=== PATIENT | female | born 1960 | race African-American/Black ===

== ENCOUNTER 2016-12-26 23:39 | Emergency (ER) | payer OTHER ==
[~2016-12-26] VITALS: Ht 170.2 cm; Wt 83.9 kg
[~2016-12-26 23:39] MED LIST: ABILIFY5 MG ORAL; ALBUTEROL SULF8.5 GM INH; AMITRIPTYLINE H25 MG ORAL; AMLODIPINE BESY10 MG ORAL; ANORO ELLIPTA1 EACH IH; ASPIR 8181 MG ORAL; ATORVASTATIN CA20 MG ORAL; CHLORTHALIDONE25 MG ORAL; GUAIFENESIN-CO118 M1 ORAL; HYDROCHLOROTHIA25 MG ORAL; LISINOPRIL20 MG ORAL; NAPROSYN500 M1 ORAL; NEURONTIN600 MG ORAL; NITROFURANTOIN100 M2 ORAL; PREDNISONE20 MG ORAL; SPIRIVA18 MCG INH; TRAMADOL HCL50 MG ORAL; VITAMIN D400 INTLU ORAL
[2016-12-26 23:55] VITALS: BP 114/89
[2016-12-27] MEDS ORDERED: traMADol 50mg tab ORAL PRN
[2016-12-27] MEDS ORDERED: Solu-MEDROL 125mg Inj IVP ONE
[2016-12-27] MEDS ORDERED: Solu-MEDROL 125mg Inj IV SCH
[2016-12-27] MEDS ORDERED: Ketorolac 30mg Inj IV PRN
[2016-12-27] MEDS ORDERED: Promethazine/Codeine 5ml UD ORAL PRN
[2016-12-27] MEDS ORDERED: DuoNeb 0.5-3(2.5)mg/3ml neb HHN PRN
[2016-12-27] MEDS ORDERED: Morphine Sulfate 2mg/ml Inj IVP PRN
[2016-12-27] MEDS ORDERED: LORazepam Inj 2mg/ml 1ml IV PRN
[2016-12-27] MEDS ORDERED: Albuterol ud Inhalation HHN ONE
[2016-12-27] MEDS ORDERED: Nitroglycerin Subl 0.4mg tab (Bottle Of 25) SL PRN
[2016-12-27] MEDS ORDERED: Ipratropium 0.02% Inh Soln 2.5ml UD HHN ONE
[2016-12-27 00:29] LABS: BASOPHILS % (AUTO) 1.6 % (0.0-2.0); EOSINOPHILS % (AUTO) 1.9 % (0.0-3.0); MEAN CORPUSCULAR HEMOGLOBIN 30.4 PG (27.0-31.0); MEAN CORPUSCULAR HGB CONC 33.6 G/DL (32.0-36.0); MEAN CORPUSCULAR VOLUME 91 FL (80-99); MEAN PLATELET VOLUME 6.4 FL (6.5-10.1); MONOCYTES % (AUTO) 3.1 % (1.0-10.0); NEUTROPHILS % (AUTO) 42.4 % (45.0-75.0); PLATELET COUNT 311 K/UL (150-450); RED BLOOD COUNT 4.49 M/UL (4.20-5.40); RED CELL DISTRIBUTION WIDTH 13.7 % (11.6-14.8)
[2016-12-27 01:14] LABS: TROPONIN I < 0.30 ng/mL (<=0.30)
[2016-12-27 01:17] LABS: ALANINE AMINOTRANSFERASE 10 U/L (3-33); ALBUMIN/GLOBULIN RATIO 1.1 (1.0-2.7); ANION GAP 17 (5-15); CALCIUM 9.4 mg/dL (8.6-10.2); CARBON DIOXIDE 24 mEQ/L (20-30); CHLORIDE 101 mEQ/L (98-107); GLOMERULAR FILTRATION RATE > 60 mL/min (>60); HEMOLYSIS 47; POTASSIUM 3.5 mEQ/L (3.4-4.9); SODIUM 142 mEQ/L (135-145); TOTAL PROTEIN 6.8 g/dL (6.6-8.7)
[2016-12-27 01:30] LABS: APPEARANCE,URINE CLEAR; KETONES,URINE NEGATIVE (NEGATIVE); LEUKOCYTE ESTERASE ,URINE 2+ (NEGATIVE); NITRITE,URINE NEGATIVE (NEGATIVE); PH,URINE 5 (4.5-8.0); PROTEIN,URINE 1+ (NEGATIVE); UROBILINOGEN,URINE NORMAL MG/DL (0.0-1.0)
[2016-12-27 01:35] LABS: ASPARTATE AMINO TRANSFERASE 18 U/L (5-40)
[2016-12-27 01:51] LABS: BACTERIA,URINE FEW /HPF; SQUAMOUS EPITHELIAL CELL,UR MODERATE /LPF (NONE/OCC)
[2016-12-27] MEDS ORDERED: ALBUTEROL SULF8.5 GM INH (02:08)
[2016-12-27] MEDS ORDERED: PREDNISONE20 MG ORAL (02:08)
[2016-12-27] MEDS ORDERED: AZITHROMYCIN250 MG ORAL (02:08)
--- NOTE | 2016-12-27 02:09 | Emergency Room Report ---
History of Present Illness General Chief Complaint: Asthma Source: Patient Present Illness HPI This is a 56-year-old female with history of asthma. She said she been having trouble with her asthma for a month now. Better during the day. Worse at night when she lay flat. She hasn't used her inhaler frequently. Also using a steroid inhaler. Also using a nebulizer machine. No steroid pills. She still able to smoke. She complaining of wheezing and short of breath tonight. More than usual. Coughing is nonproductive. Worse with exertion. Better sitting up. She's been sleeping in a recliner for last 3 days. Denies any fever or chills. Denies any chest pain. No swelling. Allergies: Coded Allergies: No Known Allergies (Unverified , 01/02/14) Patient History Past Medical History: see triage record, old chart reviewed, asthma Past Surgical History: other Pertinent Family History: none Social History: Reports: smoking Now: No Immunizations: other Reviewed Nursing Documentation: PMH: Agreed, PSxH: Agreed Nursing Documentation-PMH Hx Cardiac Problems: Yes - HIGH CHOLESTEROL Hx Hypertension: Yes Hx Asthma: Yes Hx Cancer: No Hx Gastrointestinal Problems: No Hx Neurological Problems: No Review of Systems Eye: Denies: blurred vision, eye pain ENT: Denies: ear pain, nose congestion, throat swelling Respiratory: Reports: cough, shortness of breath, wheezing Cardiovascular: Denies: chest pain, palpitations Gastrointestinal: Denies: abdominal pain, diarrhea, nausea, vomiting Musculoskeletal: Denies: back pain, joint pain Skin: Denies: rash Neurological: Denies: headache, numbness Endocrine: Denies: increased thirst, increased urine Hematologic/Lymphatic: Denies: easy bruising All Other Systems: negative except mentioned in HPI Physical Exam Vital Signs Date Time Temp Pulse Resp B/P Pulse Ox O2 Delivery O2 Flow Rate FiO2 12/26/16 23:42 98.1 93 16 114/89 98 Room Air 12/27/16 00:10 21 vitals normal Sp02 EP Interpretation: reviewed, normal General Appearance: no apparent distress, alert, mild distress Head: normocephalic, atraumatic Eyes: bilateral eye EOMI, bilateral eye PERRL ENT: hearing grossly normal, normal pharynx Neck: full range of motion, supple, no meningismus Respiratory: chest non-tender, respiratory distress, decreased breath sounds, accessory muscle use, wheezing Cardiovascular #1: regular rate, rhythm, no murmur Gastrointestinal: normal bowel sounds, non tender, no mass, no organomegaly, no bruit, non-distended Musculoskeletal: back normal, gait/station normal, normal range of motion Psychiatric: mood/affect normal Skin: warm/dry Medical Decision Making Diagnostic Impression: Primary Impression: Acute asthma exacerbation Qualified Codes: J45.901 - Unspecified asthma with (acute) exacerbation ER Course Patient present with asthma exacerbation. She was in distress when she came in. She cleared up nicely. Because of the severity of her exacerbation, wanted to keep her for 24-hour observation. She said that she felt better wants to go home. No evidence of ACS, PE, dissection. Lab Results Impression labs unremarkable Rhythm Strip Diag. Results EP Interpretation: yes Rate: 85 Rhythm: NSR, no PVC's, no ectopy Chest X-Ray Diagnostic Results EP Interpretation: Yes Findings: no consolidation, no effusion, no pneumothorax, no acute cardiopulmonary disease Number of Views: 1 Last Vital Signs Date Time Temp Pulse Resp B/P Pulse Ox O2 Delivery O2 Flow Rate FiO2 12/27/16 00:40 90 18 98 Room Air 21 12/26/16 23:55 98.1 114/89 Status: improved Disposition: HOME, SELF-CARE Condition: Stable Scripts Azithromycin* (ZITHROMAX*) 250 Mg Tablet 250 MG ORAL DAILY, #6 TAB 0 Refills Take two tablets by mouth today, then take one tablet by mouth daily for four days Prov: MICHAEL JENKINS M.D. 12/27/16 Prednisone* (PREDNISONE*) 20 Mg Tablet 60 MG ORAL DAILY, #15 TAB Prov: MICHAEL JENKINS M.D. 12/27/16 Albuterol Sulfate* (ALBUTEROL SULFATE MDI*) 8.5 Gm Hfa.aer.ad 2 PUFF INH Q4H Y for cough/wheezing, #1 EA 0 Refills Prov: MICHAEL JENKINS M.D. 12/27/16 Referrals: [facility] (PCP) Patient Instructions: Asthma, Adult Additional Instructions: Followup with your Dr. in 2 to 3 days. Return if symptom worsen. Stop smoking. MICHAEL JENKINS M.D. Dec 27, 2016 02:09
[2016-12-27 02:23] VITALS: BP 108/72
[2016-12-27 02:25] VITALS: BP 108/72
[2016-12-27] MEDS ORDERED: Piperacillin/Tazobactam 2.25 GM in D5W 55 ML IV SCH (06:00)
[2016-12-27] MEDS ORDERED: NovoLOG Insulin Flexpen SUBQ SCH (06:30)
[2016-12-27] MEDS ORDERED: Theophylline ER 100mg ORAL SCH (09:00)
[2016-12-27] MEDS ORDERED: Heparin 5000 units/ml inj SUBQ SCH (09:00)
--- NOTE | 2016-12-27 11:06 | Diagnostic Imaging Report ---
Indication: SOB, chest pain Technique: One view of the chest Comparison: 01/02/2014 Findings: Better inspiration currently. Lungs and pleural spaces are clear. Heart size is normal. Aorta is tortuous. No significant interim change Impression: No acute process
== END 2016-12-27 02:25 | disposition home or self-care (01) ==
LOC: EMR 23:55 → CANBEDREQ 12-27 01:58 → EMR 12-27 02:25
DX: J45.901 Unspecified asthma with (acute) exacerbation (principal); I10 Essential (primary) hypertension; E78.00 Pure hypercholesterolemia, unspecified; F17.200 Nicotine dependence, unspecified, uncomplicated
CPT/HCPCS: 36415; 71010; 80053; 81003; 83880; 84484; 85025; 94640; 94664; 99285; J1815; J2930

== ENCOUNTER 2017-03-15 20:27 | Emergency (ER) | payer OTHER ==
[~2017-03-15] VITALS: Ht 167.6 cm; Wt 83.0 kg
[~2017-03-15 20:27] MED LIST changes: +AZITHROMYCIN250 MG ORAL
[2017-03-15 21:01] VITALS: BP 118/72
[2017-03-15] MEDS ORDERED: PREDNISONE20 MG ORAL (21:26)
[2017-03-15] MEDS ORDERED: KEFLEX500 MG ORAL (21:26)
[2017-03-15] MEDS ORDERED: PredniSONE 20mg tab ORAL ONE (21:30)
[2017-03-15] MEDS ORDERED: Cephalexin 500mg cap ORAL ONE (21:30)
[2017-03-15 21:43] VITALS: BP 118/72
--- NOTE | 2017-03-16 03:04 | Emergency Room Report ---
History of Present Illness General Chief Complaint: Skin Rash/Abscess Source: Patient Present Illness HPI 56-year-old female presents to ED for evaluation of rash. States her last 3 days she's had a rash to her arms and chest. States the rash her chest that since resolved the rash on her arms has persisted. States it is very itchy. Denies any pain. Denies any fevers or chills. Denies any known food or drug allergies. States the last time she had such a rash resolves on its own. Believes is related to heat exposure. Denies any sick contacts or recent travel. Patient states she took Benadryl with minimal relief. No other aggravating or relieving factors. Denies any other associated symptoms Allergies: Coded Allergies: No Known Allergies (Unverified , 01/02/14) Patient History Past Medical History: asthma Past Surgical History: none Pertinent Family History: none Social History: Denies: alcohol use, drug use, smoking Now: No Immunizations: UTD Reviewed Nursing Documentation: PMH: Agreed, PSxH: Agreed Nursing Documentation-PMH Hx Cardiac Problems: Yes - HIGH CHOLESTEROL Hx Hypertension: Yes - SCIATICA Hx Asthma: Yes Hx Cancer: No Hx Gastrointestinal Problems: No Hx Neurological Problems: No Review of Systems All Other Systems: negative except mentioned in HPI Physical Exam Vital Signs Date Time Temp Pulse Resp B/P Pulse Ox O2 Delivery O2 Flow Rate FiO2 03/15/17 20:51 98.2 81 16 118/72 98 Room Air Sp02 EP Interpretation: reviewed, normal General Appearance: no apparent distress, alert, GCS 15, non-toxic Head: normocephalic Eyes: bilateral eye PERRL, bilateral eye normal inspection ENT: normal ENT inspection Neck: normal inspection Respiratory: normal inspection Cardiovascular #1: normal inspection Gastrointestinal: normal inspection Rectal: deferred Genitourinary: no CVA tenderness Musculoskeletal: normal inspection Neurologic: alert, oriented x3, responsive, motor strength/tone normal, sensory intact, speech normal Psychiatric: normal inspection Skin: other - diffuse papular rash noted to bilateral arms. nonerythematous base. Lymphatic: normal inspection Medical Decision Making Diagnostic Impression: Primary Impression: Rash ER Course Hospital Course 56-year-old female presents to ED with rash to arms Differential diagnoses include: Cellulitis, dermatitis, insect bite, abscess Clinical course Patient placed on stretcher. After initial history, physical exam reveals a female in no acute distress. On exam there is a fine papular rash noted to bilateral arms. Nonerythematous base. Blanching. Does not appear urticaria. Could be contact dermatitis vs heat rash Diagnosis -rash stable and discharged to home with prescription for Prednisone, Keflex. continue benedryl as directed. Instructed to followup with PMD. Instructed return to ED if symptoms recur or worsen Last Vital Signs Date Time Temp Pulse Resp B/P Pulse Ox O2 Delivery O2 Flow Rate FiO2 03/15/17 21:43 98.2 16 118/72 98 Room Air 03/15/17 20:51 81 Status: improved Disposition: HOME, SELF-CARE Condition: Stable Scripts Prednisone* (PREDNISONE*) 20 Mg Tablet 40 MG ORAL DAILY, #10 TAB Prov: KARI NIEVES M.D. 03/15/17 Cephalexin* (KEFLEX*) 500 Mg Capsule 500 MG ORAL Q6H, #28 CAP 0 Refills Prov: KARI NIEVES M.D. 03/15/17 Referrals: [facility],REFERR[facility] (PCP) Patient Instructions: Rash, Contact Dermatitis, [id number], Heat Rash KARI NIEVES M.D. March 16, 2017 03:04
== END 2017-03-15 21:45 | disposition home or self-care (01) ==
LOC: EMR 21:42
DX: R21 Rash and other nonspecific skin eruption (principal); E78.00 Pure hypercholesterolemia, unspecified; I10 Essential (primary) hypertension; J45.909 Unspecified asthma, uncomplicated
CPT/HCPCS: 99284

== ENCOUNTER 2017-08-30 18:36 | Emergency (ER) | payer OTHER ==
[~2017-08-30] VITALS: Ht 167.6 cm; Wt 83.9 kg
[~2017-08-30 18:36] MED LIST changes: +KEFLEX500 MG ORAL
[2017-08-30 19:09] LABS: APPEARANCE,URINE SLIGHTLY CLOUDY; KETONES,URINE 1+ (NEGATIVE); LEUKOCYTE ESTERASE ,URINE 3+ (NEGATIVE); NITRITE,URINE POSITIVE (NEGATIVE); PH,URINE 6 (4.5-8.0); PROTEIN,URINE 3+ (NEGATIVE); UROBILINOGEN,URINE 1 MG/DL (0.0-1.0)
[2017-08-30 19:13] LABS: BACTERIA,URINE MANY /HPF; SQUAMOUS EPITHELIAL CELL,UR FEW /LPF (NONE/OCC)
[2017-08-30] MEDS ORDERED: NITROFURANTOIN100 M2 ORAL (19:27)
[2017-08-30] MEDS ORDERED: ACETAMINOPHEN-1 EAC1 ORAL (19:27)
[2017-08-30 19:36] VITALS: BP 108/83
[2017-08-30 19:37] VITALS: BP 106/81
--- NOTE | 2017-08-30 20:36 | Emergency Room Report ---
History of Present Illness General Chief Complaint: Female Urogenital Problems Source: Patient Present Illness HPI The patient is a 56-year-old female presenting for possible urinary tract infection. She states that she has had this in the past and feels similar. She began to develop dysuria and increased urinary frequency yesterday. She describes the pain of 8/10 sharp sensation it occurs only with urination. She denies any other symptoms including nausea, vomiting, fever, chills, back pain, abdominal pain, vaginal discharge Allergies: Coded Allergies: No Known Allergies (Unverified , 01/02/14) Patient History Past Medical History: see triage record Pertinent Family History: none Reviewed Nursing Documentation: PMH: Agreed, PSxH: Agreed Nursing Documentation-PMH Hx Cardiac Problems: Yes - HIGH CHOLESTEROL Hx Hypertension: Yes - SCIATICA Hx Asthma: Yes Hx Cancer: No Hx Gastrointestinal Problems: No Hx Neurological Problems: No Review of Systems All Other Systems: negative except mentioned in HPI Physical Exam Vital Signs Date Time Temp Pulse Resp B/P (MAP) Pulse Ox O2 Delivery O2 Flow Rate FiO2 08/30/17 18:39 98.2 87 20 106/81 98 Room Air Sp02 EP Interpretation: reviewed, normal General Appearance: no apparent distress, alert, GCS 15, non-toxic Head: normocephalic, atraumatic Eyes: bilateral eye normal inspection, bilateral eye PERRL ENT: hearing grossly normal, normal pharynx, no angioedema, normal voice Cardiovascular #1: regular rate, rhythm, no edema Gastrointestinal: normal bowel sounds, non tender, soft, non-distended, no guarding, no rebound Musculoskeletal: back normal, gait/station normal, normal range of motion, non- tender Neurologic: alert, oriented x3, responsive, motor strength/tone normal, sensory intact, speech normal Psychiatric: judgement/insight normal, memory normal, mood/affect normal, no suicidal/homicidal ideation Skin: normal color, no rash, warm/dry, well hydrated Medical Decision Making PA Attestation Dr. Peña is my supervising physician. Patient management was discussed with my supervising physician Diagnostic Impression: Primary Impression: Urinary tract infection Qualified Codes: N30.01 - Acute cystitis with hematuria ER Course The patient is a 56-year-old female presenting for possible urinary tract infection Differential diagnosis considered but not limited to: UTI, BV, yeast infection, pyelonephritis, PID PE: Vitals WNL. NAD. Abdomen: Normal appearance. Non distended. No ecchymosis. Normal BS. No abd tenderness. No McBurney point tenderness. No guarding. No CVA tenderness Urinalysis is consistent with urinary tract infection The patient discharged home with a prescription for Macrobid and is given ER precautions. Laboratory Tests Test 08/30/17 18:55 Urine Color Yellow Urine Appearance Slightly cloudy Urine pH 6 (4.5-8.0) Urine Specific Moro 1.020 (1.005-1.035) Urine Protein 3+ (NEGATIVE) H Urine Glucose (UA) Negative (NEGATIVE) Urine Ketones 1+ (NEGATIVE) H Urine Occult Blood 5+ (NEGATIVE) H Urine Nitrite Positive (NEGATIVE) H Urine Bilirubin Negative (NEGATIVE) Urine Urobilinogen 1 MG/DL (0.0-1.0) H Urine Leukocyte Esterase 3+ (NEGATIVE) H Urine RBC 10-15 /HPF (0 - 2) H Urine WBC 5-10 /HPF (0 - 2) H Urine Squamous Epithelial Cells Few /LPF (NONE/OCC) Urine Bacteria Many /HPF (NONE) H Lab Results Impression Urinalysis is consistent with urinary tract infection Last Vital Signs Date Time Temp Pulse Resp B/P (MAP) Pulse Ox O2 Delivery O2 Flow Rate FiO2 08/30/17 19:37 98.2 78 20 106/81 98 Room Air Status: improved Disposition: HOME, SELF-CARE Condition: Improved Scripts Acetaminophen With Codeine (T#3) (TYLENOL #3 TAB*) Y Tab 1 TAB ORAL Q6HR Y for For Pain, #10 TAB Prov: JCARLOS CARPENTER. 08/30/17 Nitrofurantoin Monohyd/M-Cryst* (MACROBID 100 MG*) 100 Mg Capsule 100 MG ORAL EVERY 12 HOURS, #14 CAP Prov: JCARLOS CARPENTER P.A. 08/30/17 Patient Instructions: Urinary Tract Infection Additional Instructions: I discussed my findings with the patient. All questions and concerns have been answered. Treatment and medication compliance have been addressed. I advised the patient that they need to follow up with PMD in 3-5 days. Return to ED if symptoms worsen, new symptoms arise, or if needed for any reason. Patient verbalized understanding of discharge instructions. JCARLOS CARPENTER Aug 30, 2017 20:36
== END 2017-08-30 19:39 | disposition home or self-care (01) ==
LOC: EMR 18:51
DX: N39.0 Urinary tract infection, site not specified (principal); I10 Essential (primary) hypertension; J45.909 Unspecified asthma, uncomplicated
CPT/HCPCS: 81003; 87086; 87181; 99284

== ENCOUNTER 2018-06-02 12:16 | Emergency (ER) | payer OTHER ==
[~2018-06-02] VITALS: Ht 167.6 cm; Wt 84.8 kg
[~2018-06-02 12:16] MED LIST changes: +ACETAMINOPHEN-1 EAC1 ORAL
[2018-06-02] MEDS ORDERED: BENADRYL25 M3 PO (12:29)
[2018-06-02] MEDS ORDERED: LISINOPRIL20 MG ORAL (12:29)
[2018-06-02] MEDS ORDERED: LORATADINE10 M2 PO (13:06)
[2018-06-02] MEDS ORDERED: HYDROCORTISONE-30 GM TOPIC (13:06)
[2018-06-02] MEDS ORDERED: BENADRYL25 MG ORAL (13:06)
--- NOTE | 2018-06-02 13:06 | Emergency Room Report ---
History of Present Illness General Chief Complaint: Skin Rash/Abscess Present Illness HPI 57 yo female planing on rash on her bilateral fossa and posterior neck for the past few days. Reports history of asthma and eczema. Reports since been taking Benadryl without relief of symptoms. Reports she has been scratching. Denies fever, chest pain, shortness of breath, acute symptoms. denies tongue swelling or vomiting. Reports she has been previously treated with her doctor for eczema. Reports that she has not followed up with derm. Allergies: Coded Allergies: No Known Allergies (Unverified , 01/02/14) Patient History Past Medical History: see triage record Last Menstrual Period: 2009 Reviewed Nursing Documentation: PMH: Agreed; PSxH: Agreed Nursing Documentation-PMH Hx Cardiac Problems: Yes - HIGH CHOLESTEROL Hx Hypertension: Yes - SCIATICA Hx Asthma: Yes Hx Cancer: No Hx Gastrointestinal Problems: No Hx Neurological Problems: No Review of Systems All Other Systems: negative except mentioned in HPI Physical Exam Vital Signs Date Time Temp Pulse Resp B/P (MAP) Pulse Ox O2 Delivery O2 Flow Rate FiO2 06/02/18 12:25 98.8 80 16 110/81 94 Room Air 98.8 Sp02 EP Interpretation: reviewed, normal General Appearance: well appearing, no apparent distress, alert, GCS 15, non- toxic Head: normocephalic, atraumatic Eyes: bilateral eye normal inspection, bilateral eye PERRL ENT: hearing grossly normal, normal pharynx, no angioedema, normal voice, uvula midline, moist mucus membranes Neck: full range of motion Respiratory: lungs clear, normal breath sounds, no rhonchi, no respiratory distress, no accessory muscle use, no wheezing, speaking full sentences Cardiovascular #1: regular rate, rhythm, no edema Musculoskeletal: back normal, digits/nails normal, gait/station normal, normal range of motion, non-tender Psychiatric: mood/affect normal Skin: rash - macular papular erythematous rash with excoriations noted onbilateral antecubital fossa and posterior neck, no surrounding erythema or edema, no blisters or vesicles, no open wound or drainage Medical Decision Making PA Attestation Dr. Hale is my supervising Physician whom patient management has been discussed with. Diagnostic Impression: Primary Impression: Acute eczema ER Course Pt. presents to the ED c/o rash. Ddx considered but are not limited to atopic dermatitis, scabies, shingles, hives, urticaria, angiodema, allergic reaction, impetigo. Vital signs: are WNL, pt. is afebrile Ordered medication. ER COURSE maculopapular erythematous rash on skin consistent with patient history of eczema. no surrounding erythema or edema, low suspicion for cellulitis. No vesicles or blistering, no open wounds or drainage. Excoriations noted. Provided patient with hydroxyzine and Decadron in ER. Did not want provide Benadryl the patient's in the ER because she is driving home and she states that it makes her drowsy. Followup with primary care provider and request referral to dermatology. do not scratch her age. Apply cool compresses to affected areas. Take loratadine during the day and Benadryl at night to help with itching symptoms. Loratadine does not cause same drowsy side effects as Benadryl. DISCHARGE: -Rx given for Benadryl for pruritis. SE drowsiness, do not take prior to drinking, driving, operating heavy machinery. -Rx given for Hydrocortisone cream. Do not apply to face or skin creases. At this time pt. is stable for d/c to home. Patient resting comfortably, in no acute distress, nontoxic appearing, smiling. Will provide printed patient care instructions, and any necessary prescriptions. Care plan and follow up instructions have been discussed with the patient prior to discharge. Patient provided with list of healthcare clinics to establish primary care physician. Patient instructed to follow-up with primary care provider in 3 - 5 days. Patient questions asked and answered. ER precautions given. Patient instructed to return to ER immediately for any new or worsening of symptoms including but not limited to increasing SOB, persistent fever. - Please note that this Emergency Department Report was dictated using [employer] braider technology software, occasionally this can lead to erroneous entry secondary to interpretation by the dictation equipment. Last Vital Signs Date Time Temp Pulse Resp B/P (MAP) Pulse Ox O2 Delivery O2 Flow Rate FiO2 06/02/18 12:25 98.8 80 16 110/81 94 Room Air 98.8 Disposition: HOME, SELF-CARE Condition: Stable Scripts Loratadine (LORATADINE) 10 Mg Tablet 10 MG PO DAILY, #30 TAB Prov: Wilman Can 06/02/18 Hydrocortisone/Aloe Vera 1%* (HYDROCORTISONE-ALOE 1% CREAM*) Y Cr 1 APPLIC TOPIC BID PRN for Itching, #30 GM Prov: Wilman Can 06/02/18 Diphenhydramine Hcl* (BENADRYL*) 25 Mg Capsule 25 MG ORAL QHS PRN for Itching, #30 CAP Prov: Wilman Can 06/02/18 Patient Instructions: Eczema Additional Instructions: Followup with primary care provider in 3 -5 days. Do not scratch. Apply cool compresses. Do not apply medication to face or skin creases. Take medications as directed. Do not take Benadryl prior to drinking, driving, or operating heavy machinery. Patient questions asked and answered. ER precautions given, patient instructed to return to ER immediately for any new or worsening of symptoms. Wilman Can Jun 02, 2018 13:06
[2018-06-02] MEDS ORDERED: Dexamethasone 4mg/ml vial IM ONE (13:15)
[2018-06-02 13:19] VITALS: BP 128/71
== END 2018-06-02 13:26 | disposition home or self-care (01) ==
LOC: EMR 13:16
DX: L30.9 Dermatitis, unspecified (principal); I10 Essential (primary) hypertension; J45.909 Unspecified asthma, uncomplicated
CPT/HCPCS: 96372; 99284; J1100

== ENCOUNTER 2019-04-30 14:47 | Emergency (ER) | payer OTHER ==
[~2019-04-30] VITALS: Ht 167.6 cm; Wt 83.0 kg
[~2019-04-30 14:47] MED LIST changes: +BENADRYL25 M3 PO; +BENADRYL25 MG ORAL; +HYDROCORTISONE-30 GM TOPIC; +LORATADINE10 M2 PO
--- NOTE | 2019-04-30 15:15 | NUR ---
ED Nurse Note: Patient walked into ED c/o worsening rash with burning pain all over the body. patient is alert awake x4 ambulatory breathing unlabored and even
--- NOTE | 2019-04-30 16:40 | Emergency Room Report ---
History of Present Illness General Chief Complaint: Skin Rash/Abscess Source: Patient, Medical Record Present Illness HPI 58-year-old female presents to the emergency department complaining of intermittent burning/itchy circular lesions on the bilateral upper extremities across the chest and under the breasts bilaterally. Patient states she has had similar symptoms in the past but never to this extent. Patient states that the rash was made worse after application of hydrocortisone cream. Patient reports 10 out of 10 severity burning sensation and itching. Patient denies fevers or chills she reports some erythema around some of the rash lesions. Pt. denies fevers, chills or swollen tender lymph nodes. Denies lesions/rashes elsewhere on the body, no rash on palms or soles. Denies new medications or body washes or creams. Denies swelling of the lips, tongue , throat or airway. Denies wheezing, or shortness of breath. Denies recent travel, recent illness or ill contacts. denies blisters, oral lesions, or sloughing of the skin. 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 Allergies: Coded Allergies: No Known Allergies (Unverified , 01/02/14) Patient History Past Medical History: see triage record Past Surgical History: none Pertinent Family History: none Last Menstrual Period: menopause Reviewed Nursing Documentation: PMH: Agreed; PSxH: Agreed Nursing Documentation-PMH Past Medical History: No History, Except For Hx Cardiac Problems: Yes - HIGH CHOLESTEROL Hx Hypertension: Yes - SCIATICA Hx Asthma: Yes Hx Cancer: No Hx Gastrointestinal Problems: No Hx Neurological Problems: No Review of Systems All Other Systems: negative except mentioned in HPI Physical Exam Vital Signs Date Time Temp Pulse Resp B/P (MAP) Pulse Ox O2 Delivery O2 Flow Rate FiO2 04/30/19 15:09 98.2 81 16 126/90 (102) 99 Room Air Medical Decision Making PA Attestation Dr. Peña is my supervising Physician whom patient management has been discussed with. Diagnostic Impression: Primary Impression: Rash and other nonspecific skin eruption ER Course 58-year-old female presents to the emergency department complaining of intermittent burning/itchy circular lesions on the bilateral upper extremities across the chest and under the breasts bilaterally. Patient states she has had similar symptoms in the past but never to this extent. Patient states that the rash was made worse after application of hydrocortisone cream. Patient reports 10 out of 10 severity burning sensation and itching. Patient denies fevers or chills she reports some erythema around some of the rash lesions. Pt. denies fevers, chills or swollen tender lymph nodes. Denies lesions/rashes elsewhere on the body, no rash on palms or soles. Denies new medications or body washes or creams. Denies swelling of the lips, tongue , throat or airway. Denies wheezing, or shortness of breath. Denies recent travel, recent illness or ill contacts. denies blisters, oral lesions, or sloughing of the skin. 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 Ddx considered but are not limited to cellulitis, scabies, shingles, varicella, dermatitis, urticaria, eczema, tinea, viral exanthem, SJS Vital signs: are WNL, pt. is afebrile H&PE are most consistent with non-specific rash, suspect fungal/ bacterial due to annular appearance with erythema. could also be drug reaction. No evidence of impending airway compromise or anaphylaxis. No Evidence of rapid progression. ORDERS: none required at this time, the diagnosis is clinical ED INTERVENTIONS: None required at this time. DISCHARGE: At this time pt. is stable for d/c to home. Will provide printed patient care instructions, and any necessary prescriptions. Care plan and Dermatology follow up instructions have been discussed with the patient prior to discharge. Last Vital Signs Date Time Temp Pulse Resp B/P (MAP) Pulse Ox O2 Delivery O2 Flow Rate FiO2 04/30/19 15:09 98.2 81 16 126/90 (102) 99 Room Air Disposition: HOME, SELF-CARE Condition: Stable Scripts Ketoconazole (KETOCONAZOLE) 10 Gm Powder 1 APPLIC MC DAILY, #10 GM Prov: Mercedez Koehler 04/30/19 Ketoconazole (KETOCONAZOLE) 120 Ml Shampoo 1 APPLIC TP TID, #120 ML 1 Refill Prov: Mercedez Koehler 04/30/19 Doxycycline Hyclate* (VIBRAMYCIN*) 100 Mg Capsule 100 MG ORAL EVERY 12 HOURS for 7 Days, #14 CAP 0 Refills Prov: Mercedez Koehler 04/30/19 Patient Instructions: Rash Additional Instructions: Take medications as directed. Follow up with a Primary Care Provider in 3-5 days for DERMATOLOGY REFERRAL , even if your symptoms have resolved. Return sooner to ED if new symptoms occur, or current symptoms become worse. - Please note that this Emergency Department Report was dictated using [employer] bilingual technology software, occasionally this can lead to erroneous entry secondary to interpretation by the dictation equipment. Mercedez Koehler Apr 30, 2019 16:40
[2019-04-30] MEDS ORDERED: VIBRAMYCIN100 MG ORAL (16:43)
[2019-04-30] MEDS ORDERED: KETOCONAZOLE120 ML TP (16:43)
[2019-04-30] MEDS ORDERED: KETOCONAZOLE10 GM MC (16:43)
[2019-04-30 16:51] VITALS: BP 121/81
--- NOTE | 2019-04-30 16:57 | NUR ---
ER DISCHARGE NOTE: Patient is cleared to be discharged per CARLOTTA ANDERSON, pt is aox4, on room air, with stable vital signs. pt was given dc and prescription instructions, pt was able to verbalize understanding, pt id band removed without complications. pt is able to ambulate with steady gait. pt took all belongings.
== END 2019-04-30 16:57 | disposition home or self-care (01) ==
LOC: EMR 15:55
DX: R21 Rash and other nonspecific skin eruption (principal); J45.909 Unspecified asthma, uncomplicated; E78.00 Pure hypercholesterolemia, unspecified
CPT/HCPCS: 99283

== ENCOUNTER 2019-12-12 20:27 | Emergency (ER) | payer OTHER ==
[~2019-12-12] VITALS: Ht 167.6 cm; Wt 84.4 kg
[~2019-12-12 20:27] MED LIST changes: +CIPRO500 MG PO; +IBUPROFEN600 MG ORAL; +KETOCONAZOLE10 GM MC; +KETOCONAZOLE120 ML TP; +POTASSIUM CHLO20 ME3 PO; +VIBRAMYCIN100 MG ORAL; +ZOFRAN4 M1 ORAL
[2019-12-12] MEDS ORDERED: GUAIFENESI100 MG/5 M ORAL (20:45)
[2019-12-12] MEDS ORDERED: DUONEB 0.5-3(2.53 ML HHN (20:45)
--- NOTE | 2019-12-12 20:59 | Emergency Room Report ---
History of Present Illness General Chief Complaint: Upper Respiratory Illness Source: Patient Present Illness HPI 59-year-old female history of COPD history of hypertension hyperlipidemia presents with cough, sputum production, shortness of breath over the past 3 days recent bronchoscopy in late November, having difficulty breathing, no aggravating factors alleviating factors appear to be albuterol severity is moderate, constant, patient denies any chest pain but she does endorse some chest tightness. Patient presents for evaluation Allergies: Coded Allergies: PHENYTOIN (Verified Allergy, Unknown, 08/24/19) Patient History Past Medical History: see triage record Social History: Reports: smoking Last Menstrual Period: na Reviewed Nursing Documentation: PMH: Agreed; PSxH: Agreed Nursing Documentation-PMH Hx Cardiac Problems: Yes - HIGH CHOLESTEROL Hx Hypertension: Yes - also hypotension Hx Asthma: Yes Hx COPD: Yes Hx Cancer: No Hx Gastrointestinal Problems: No Hx Neurological Problems: No Review of Systems All Other Systems: negative except mentioned in HPI Physical Exam Vital Signs Date Time Temp Pulse Resp B/P (MAP) Pulse Ox O2 Delivery O2 Flow Rate FiO2 12/12/19 20:36 98.2 82 16 114/82 (93) 95 Room Air Sp02 EP Interpretation: reviewed, normal General Appearance: alert, mild distress Head: normocephalic, atraumatic Eyes: bilateral eye PERRL, bilateral eye EOMI ENT: uvula midline, moist mucus membranes Neck: supple, thyroid normal, supple/symm/no masses Respiratory: no accessory muscle use, decreased breath sounds, accessory muscle use, wheezing - Moderate Cardiovascular #1: normal peripheral pulses, regular rate, rhythm, no edema, no gallop, no murmur Gastrointestinal: non tender, soft, no guarding, no rebound Musculoskeletal: normal inspection Neurologic: alert, oriented x3 Psychiatric: mood/affect normal Skin: no rash, warm/dry Medical Decision Making Diagnostic Impression: Primary Impression: COPD with exacerbation ER Course 59-year-old female presents with acute shortness of breath differential diagnosis include COPD exacerbation, ACS, pneumonia We will obtain chest x-ray, labs, will start prednisone Patient will be admitted to our hospital Reevaluation 10:50 PM, patient feels better Patient was about to be transferred to another hospital however patient states she feels better will follow up with her [facility] doctor tomorrow in the morning she currently has an appointment at 8 AM Patient is leaving AGAINST MEDICAL ADVICE, does not want to be transferred out The patient has requested to leave the ED against medical advice. The patient reason(s) for leaving include, but are not limited to, the following: I do not want to be transferred, I feel better and have an appointment in the morning. I believe this patient is of sound mind and competent to refuse medical care. The patient is responding and asking questions appropriately. The patient is oriented to person, place and time. The patient is not psychotic, delusional, suicidal, homicidal or hallucinating. The patient demonstrates a normal mental capacity to make decisions regarding their healthcare. The patient is clinically sober and does not appear to be under the influence of any illicit drugs at this time. The patient has been advised of the risks, in layman terms, of leaving AMA which include, but are not limited to , coma, permanent disability, loss of current lifestyle, delay in diagnosis. Alternatives have been offered - the patient remains steadfast in their wish to leave. The patient has been advised that should they change their mind they are welcome to return to this hospital, or any other, at any time. The patient understands that in no way does an AMA discharge mean that I do not want them to have the best medical care available. To this end, I have provided appropriate prescriptions, referrals, and discharge instructions. The patient did sign AMA paperwork. The above discussion was witnessed by another member of staff. Laboratory Tests Test 12/12/19 21:00 White Blood Count 7.8 K/UL (4.8-10.8) Red Blood Count 4.41 M/UL (4.20-5.40) Hemoglobin 13.0 G/DL (12.0-16.0) Hematocrit 41.1 % (37.0-47.0) Mean Corpuscular Volume 93 FL (80-99) Mean Corpuscular Hemoglobin 29.5 PG (27.0-31.0) Mean Corpuscular Hemoglobin Concent 31.6 G/DL (32.0-36.0) L Red Cell Distribution Width 14.2 % (11.6-14.8) Platelet Count 299 K/UL (150-450) Mean Platelet Volume 6.7 FL (6.5-10.1) Neutrophils (%) (Auto) 47.1 % (45.0-75.0) Lymphocytes (%) (Auto) 43.1 % (20.0-45.0) Monocytes (%) (Auto) 6.2 % (1.0-10.0) Eosinophils (%) (Auto) 2.1 % (0.0-3.0) Basophils (%) (Auto) 1.6 % (0.0-2.0) Sodium Level 142 MMOL/L (136-145) Potassium Level 3.3 MMOL/L (3.5-5.1) L Chloride Level 103 MMOL/L (98-107) Carbon Dioxide Level 31 MMOL/L (21-32) Anion Gap 8 mmol/L (5-15) Blood Urea Nitrogen 17 mg/dL (7-18) Creatinine 1.0 MG/DL (0.55-1.30) Estimate Glomerular Filtration Rate > 60 mL/min (>60) Glucose Level 120 MG/DL (74-106) H Calcium Level 9.2 MG/DL (8.5-10.1) Total Bilirubin 0.4 MG/DL (0.2-1.0) Aspartate Amino Transferase (AST) 40 U/L (15-37) H Alanine Aminotransferase (ALT) 24 U/L (12-78) Alkaline Phosphatase 55 U/L (46-116) Troponin I 0.000 ng/mL (0.000-0.056) Pro-B-Type Natriuretic Peptide 39 pg/mL (0-125) Total Protein 7.7 G/DL (6.4-8.2) Albumin 3.3 G/DL (3.4-5.0) L Globulin 4.4 g/dL Albumin/Globulin Ratio 0.8 (1.0-2.7) L Lipase 125 U/L (73-393) EKG Diagnostic Results EKG Time: 21:04 EP Interpretation: NSR, rate 74, QTc 457, no acute ST elevations, normal axis Rhythm Strip Diag. Results Rhythm Strip Time: 20:59 EP Interpretation: yes Rate: 77 Rhythm: NSR, no PVC's, no ectopy Chest X-Ray Diagnostic Results Chest X-Ray Diagnostic Results : Chest X-Ray Ordered: Yes # of Views/Limited/Complete: 1 View Indication: Shortness of Breath EP Interpretation: Yes Interpretation: no consolidation, no effusion, no pneumothorax, no acute cardiopulmonary disease Impression: No acute disease Electronically Signed by: Elia Calderon MD Last Vital Signs Date Time Temp Pulse Resp B/P (MAP) Pulse Ox O2 Delivery O2 Flow Rate FiO2 12/12/19 20:36 98.2 82 16 114/82 (93) 95 Room Air Disposition: AGAINST MEDICAL ADVICE Condition: Stable Referrals: [facility] Patient Instructions: Chronic Obstructive Pulmonary Disease Exacerbation, Easy- to-Read Additional Instructions: The patient was provided with discharge instructions, notified to follow-up with a primary care doctor and or specialist in the next 24-48 hours, and to return to the ED if they have worsening of their symptoms. Please note that this report is being documented using [employer] technology. This can lead to erroneous entry secondary to incorrect interpretation by the dictating instrument. Elia Calderon MD Dec 12, 2019 20:59
[2019-12-12 21:10] VITALS: BP 114/82
[2019-12-12] MEDS: Albuterol ud Inhalation HHN SCH ×3 (21:10→21:23)
[2019-12-12] MEDS: Ipratropium 0.02% Inh Soln 2.5ml UD HHN SCH ×3 (21:10→21:23)
--- NOTE | 2019-12-12 21:17 | NUR ---
ED Nurse Note: pt presents to ED c/o SOb and cough for several days. pt states she recently had a broncoscopy done at [facility] for pre-COPD and since then when she lies flat, she starts to cough and experience dyspnea. pt used her nebulizer at home without relief of symptoms. pt states that she feels tightness in her chest that is exacerbated by coughing. pt also states that she feels lightheaded from the cough. pt denies fever but reports occasional chills.
[2019-12-12 21:20] LABS: BASOPHILS % (AUTO) 1.6 % (0.0-2.0); EOSINOPHILS % (AUTO) 2.1 % (0.0-3.0); HEMATOCRIT 41.1 % (37.0-47.0); LYMPHOCYTES % (AUTO) 43.1 % (20.0-45.0); MEAN CORPUSCULAR VOLUME 93 FL (80-99); MONOCYTES % (AUTO) 6.2 % (1.0-10.0); NEUTROPHILS % (AUTO) 47.1 % (45.0-75.0); PLATELET COUNT 299 K/UL (150-450); RED BLOOD COUNT 4.41 M/UL (4.20-5.40); RED CELL DISTRIBUTION WIDTH 14.2 % (11.6-14.8); WHITE BLOOD COUNT 7.8 K/UL (4.8-10.8)
[2019-12-12 21:33] LABS: ANION GAP 8 mmol/L (5-15); BLOOD UREA NITROGEN 17 mg/dL (7-18); CALCIUM 9.2 MG/DL (8.5-10.1); CARBON DIOXIDE 31 MMOL/L (21-32); CHLORIDE 103 MMOL/L (98-107); POTASSIUM 3.3 MMOL/L (3.5-5.1); SODIUM 142 MMOL/L (136-145)
[2019-12-12 21:44] LABS: ALANINE AMINOTRANSFERASE 24 U/L (12-78); ALBUMIN 3.3 G/DL (3.4-5.0); ALBUMIN/GLOBULIN RATIO 0.8 (1.0-2.7); ALKALINE PHOSPHATASE 55 U/L (46-116); ASPARTATE AMINO TRANSFERASE 40 U/L (15-37); BILIRUBIN,TOTAL 0.4 MG/DL (0.2-1.0)
--- NOTE | 2019-12-12 22:05 | NUR ---
ED Nurse Note: pt has finished breathing treatment and verbalized that she is "overall feeling better" however she is still c/o a cough
[2019-12-12 23:00] VITALS: BP 114/82
--- NOTE | 2019-12-12 23:00 | NUR ---
ED Nurse Note: pt states that she would like to leave AMA because she has a f/u appointment with her Dr at [facility] tomorrow and does not feels like she needs to stay overnight in the hospital. MANI explained risks of leaving AMA and advised pt to return if necessary. pt verbalized understanding and left with all belongings. all medical devices such as ID band and IV removed
--- NOTE | 2019-12-13 14:03 | Diagnostic Imaging Report ---
Indication: Dyspnea Comparison: 12/27/2016 A single view chest radiograph was obtained. Findings: No definite infiltrate or pulmonary vascular congestion identified. The heart is enlarged. The aorta is mildly enlarged consistent with atherosclerotic vascular disease. The bones are osteopenic. Impression: No acute disease
== END 2019-12-12 23:00 | disposition left against medical advice (07) ==
LOC: EMR 20:50 → CANBEDREQ 22:59 → EMR 23:00
DX: J44.1 Chronic obstructive pulmonary disease with (acute) exacerbation (principal); I10 Essential (primary) hypertension; I95.9 Hypotension, unspecified; E78.00 Pure hypercholesterolemia, unspecified; F17.200 Nicotine dependence, unspecified, uncomplicated; Z53.29 Procedure and treatment not carried out because of patient's decision for other reasons; Z88.8 Allergy status to other drugs, medicaments and biological substances
CPT/HCPCS: 36415; 71045; 80053; 83690; 83880; 84484; 85025; 93005; J7512; Z7502; 99284

== ENCOUNTER 2020-03-28 07:53 | Emergency (ER) | payer OTHER ==
[~2020-03-28] VITALS: Ht 167.6 cm; Wt 84.4 kg
[~2020-03-28 07:53] MED LIST changes: +DUONEB 0.5-3(2.53 ML HHN; +GUAIFENESI100 MG/5 M ORAL
[2020-03-28 08:00] VITALS: BP 125/90
--- NOTE | 2020-03-28 08:05 | NUR ---
ED Nurse Note: Patent walked into ED from home due to rash on the right inner upper arm and on the right upper chest for 1 week. patient reports it is burning, itching, and painful. patient also reports cold sores for 3 weeks. patient is alert awake x4 ambulatory steady gait, breathing unlabored and even, speaking in full sentences. in no acute distress. patient provided with hospital gown.
[2020-03-28] MEDS ORDERED: ACYCLOVIR400 MG ORAL (08:30)
[2020-03-28] MEDS ORDERED: MONISTAT-DER1 APPLIC TOPIC (08:30)
[2020-03-28 08:36] VITALS: BP 125/90
--- NOTE | 2020-03-28 08:37 | NUR ---
ER DISCHARGE NOTE: Patient is cleared to be discharged per ERMD DR Richard , pt is aox4, on room air, with stable vital signs. pt was given dc and prescription instructions, pt was able to verbalize understanding, pt id band removed without complications. pt is able to ambulate with steady gait. pt took all belongings.
--- NOTE | 2020-03-28 09:28 | Emergency Room Report ---
History of Present Illness General Chief Complaint: Skin Rash/Abscess Source: Patient Present Illness HPI 59-year-old female presents ED for evaluation of rash. States that she has a rash on her right arm and right breast for 1 week. Itching, no pain. No fevers or chills. States denies sick contacts or recent travel. States she is had similar rash in the past and has tried multiple medications without significant relief. Also has a cold sore to the lips which are not resolved feeding after several weeks. Burning, 5 out of 10, nonradiating. Denies fevers or chills. Denies runny nose cough or congestion. No other aggravating relieving factors. Denies any other associated symptoms Allergies: Coded Allergies: PHENYTOIN (Verified Allergy, Unknown, 08/24/19) COVID-19 Screening Contact w/high risk pt: No Recent Travel to affected area: No Experienced COVID-19 symptoms?: No COVID-19 symptoms experienced: Cough COVID-19 Testing performed HOOKMAN: No Patient History Past Medical History: HTN, asthma, COPD Past Surgical History: none Pertinent Family History: none Social History: Denies: smoking, alcohol use, drug use Now: No Immunizations: UTD Reviewed Nursing Documentation: PMH: Agreed; PSxH: Agreed Nursing Documentation-PMH Hx Cardiac Problems: Yes - HIGH CHOLESTEROL Hx Hypertension: Yes - also hypotension Hx Asthma: Yes Hx COPD: Yes Hx Cancer: No Hx Gastrointestinal Problems: No Hx Neurological Problems: No Review of Systems All Other Systems: negative except mentioned in HPI Physical Exam Vital Signs Date Time Temp Pulse Resp B/P (MAP) Pulse Ox O2 Delivery O2 Flow Rate FiO2 03/28/20 08:00 98.2 75 19 125/90 Room Air Sp02 EP Interpretation: reviewed, normal General Appearance: no apparent distress, alert, GCS 15, non-toxic Head: normocephalic, atraumatic Eyes: bilateral eye normal inspection, bilateral eye PERRL ENT: hearing grossly normal, normal pharynx, no angioedema, normal voice, other - multiple herpetic sores around mouth Neck: full range of motion, supple/symm/no masses Respiratory: chest non-tender, lungs clear, normal breath sounds, speaking full sentences Cardiovascular #1: regular rate, rhythm, no edema Cardiovascular #2: 2+ carotid (R), 2+ carotid (L), 2+ radial (R), 2+ radial (L) , 2+ dorsalis pedis (R), 2+ dorsalis pedis (L) Gastrointestinal: normal bowel sounds, non tender, soft, non-distended, no guarding, no rebound Rectal: deferred Genitourinary: normal inspection, no CVA tenderness Musculoskeletal: back normal, normal range of motion, gait/station normal, non- tender Neurologic: alert, motor strength/tone normal, oriented x3, sensory intact, responsive, speech normal Psychiatric: judgement/insight normal, memory normal, mood/affect normal, no suicidal/homicidal ideation Reflexes: 3+ bicep (R), 3+ bicep (L), 3+ tricep (R), 3+ tricep (L), 3+ knee (R) , 3+ knee (L) Skin: rash - satellite lesions to R arm, R breast. raised edges with central clearing. nonerythematous base. no discharge Lymphatic: no adenopathy Medical Decision Making Diagnostic Impression: Primary Impression: Cold sore Additional Impression: Rash ER Course Hospital Course 59 yo F presents with rash to mouth, to R arm and breast Differential diagnoses include: Cellulitis, dermatitis, insect bite, abscess Clinical course Patient placed on stretcher. After initial history, physical exam reveals a middle aged female in no acute distress. On exam there are multiple herpetic sores noted around the mouth. Nonerythematous. No discharge. There is also satellite lesions to the right arm and right breast. Raised edges with central clearing. Nonerythematous base. Discussed findings with patient. The herpetic sores will be treated with acyclovir. The rash appears like ringworm. Less likely a eczematous rash as there are satellite lesions. We will treat with topical antifungal. Patient would benefit from outpatient dermatology evaluation. Needs a referral from her PMD. Safe for discharge for close outpatient follow-up Diagnosis - cold sore, rash stable and discharged to home with prescription for miconazole, acyclovir. Instructed to followup with PMD. Instructed return to ED if symptoms recur or worsen Last Vital Signs Date Time Temp Pulse Resp B/P (MAP) Pulse Ox O2 Delivery O2 Flow Rate FiO2 03/28/20 08:36 98.2 75 19 125/90 Room Air Status: improved Disposition: HOME, SELF-CARE Condition: Stable Scripts Acyclovir* (ACYCLOVIR*) 400 Mg Tablet 400 MG ORAL FIVE TIMES A DAY for 7 Days, TAB Prov: Joe Richard MD 03/28/20 Miconazole Nitrate (Miconazole Nitrate) 30 Gm Cream..g. 1 APPLIC TOPIC BID, #30 GM Prov: Joe Richard MD 03/28/20 Referrals: [facility] (PCP) [facility] Patient Instructions: Body Ringworm, Cold Sore, [id number] Joe Richard MD March 28, 2020 09:28
== END 2020-03-28 08:35 | disposition home or self-care (01) ==
LOC: EMR 08:10
DX: B00.1 Herpesviral vesicular dermatitis (principal); R21 Rash and other nonspecific skin eruption; Z88.8 Allergy status to other drugs, medicaments and biological substances; I10 Essential (primary) hypertension; J44.9 Chronic obstructive pulmonary disease, unspecified; E78.00 Pure hypercholesterolemia, unspecified
CPT/HCPCS: 99282

== ENCOUNTER 2020-09-13 17:44 | Emergency (ER) | payer OTHER ==
[~2020-09-13] VITALS: Ht 170.2 cm; Wt 86.2 kg
[~2020-09-13 17:44] MED LIST changes: +ACYCLOVIR400 MG ORAL; +MONISTAT-DER1 APPLIC TOPIC
--- NOTE | 2020-09-13 18:24 | Diagnostic Imaging Report ---
EXAM: XR Right Calcaneus, 2 or More Views CLINICAL HISTORY: TRAUMA TECHNIQUE: Lateral and plantar views of the right calcaneus. COMPARISON: No previous study. FINDINGS: Bones/joints: There is osteopenia. No acute fracture of the calcaneus is detected. 0.5 cm anterior heel spur. Base of the right fifth metatarsal is unremarkable. No dislocation. Soft tissues: Unremarkable. No radiopaque foreign body. IMPRESSION: 1. Osteopenia. 2. No acute fracture is detected.
--- NOTE | 2020-09-13 18:35 | Emergency Room Report ---
History of Present Illness General Chief Complaint: Lower Extremity Injury Source: Patient Present Illness HPI 59-year-old female with no nausea no past history here complaining of right heel pain without any trauma or injury x2 days. Rates the pain 7 out of 10 without radiation. Reports that his worst pain is pressure on it. Has taken Tylenol for pain with relief. Reports she was here. Denies any other fall or injury. Denies any calf tenderness, shortness. Patient is neurovascularly intact and denies any tingling numbness. Denies taking any blood thinners. 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 COVID-19 Screening: Negative COVID-19 COVID-19 Testing Source: unk Patient History Past Medical History: see triage record Past Surgical History: none Pertinent Family History: none Last Menstrual Period: na Now: No Reviewed Nursing Documentation: PMH: Agreed; PSxH: Agreed Nursing Documentation-PMH Hx Cardiac Problems: Yes - HIGH CHOLESTEROL Hx Hypertension: Yes Hx Asthma: Yes Hx COPD: Yes Hx Cancer: No Hx Gastrointestinal Problems: No Hx Neurological Problems: No Review of Systems All Other Systems: negative except mentioned in HPI Physical Exam Vital Signs Date Time Temp Pulse Resp B/P (MAP) Pulse Ox O2 Delivery O2 Flow Rate FiO2 09/13/20 17:53 97.2 78 20 114/79 (91) 98 Room Air Sp02 EP Interpretation: reviewed, normal General Appearance: no apparent distress, alert, GCS 15, non-toxic Head: normocephalic, atraumatic Eyes: bilateral eye normal inspection, bilateral eye PERRL ENT: hearing grossly normal, normal pharynx, no angioedema, normal voice Neck: full range of motion, supple/symm/no masses Respiratory: chest non-tender, lungs clear, normal breath sounds, speaking full sentences Cardiovascular #1: regular rate, rhythm, no edema Cardiovascular #2: 2+ dorsalis pedis (R), 2+ dorsalis pedis (L) Gastrointestinal: normal bowel sounds, non tender, soft, non-distended, no guarding, no rebound Musculoskeletal: back normal, no calf tenderness, gait/station normal, non- tender Neurologic: alert, motor strength/tone normal, oriented x3, sensory intact, responsive, speech normal Psychiatric: judgement/insight normal, memory normal, mood/affect normal, no suicidal/homicidal ideation Skin: no rash Lymphatic: no adenopathy Procedures Splinting Splinting : Consent: Verbal Location: right foot Splint: post op shoe Pre-Proc Neuro Vasc Exam: normal Post-Proc Neuro Vasc Exam: normal Patient Tolerated: Well Complications: None Medical Decision Making PA Attestation All diagnoses and treatment plans were reviewed and discussed with my supervising physician Dr. Cruz Diagnostic Impression: Primary Impression: Osteopenia Additional Impression: Heel pain ER Course 59-year-old female with no nausea no past history here complaining of right heel pain without any trauma or injury x2 days. Rates the pain 7 out of 10 without radiation. Reports that his worst pain is pressure on it. Has taken Tylenol for pain with relief. Reports she was here. Denies any other fall or injury. Denies any calf tenderness, shortness. Patient is neurovascularly intact and denies any tingling numbness. Denies taking any blood thinners. Ddx considered but are not limited to: foot fracture, foot sprain, foot contusion, foot strain, heel spur Vital signs: are WNL, pt. is afebrile H&PE are most consistent with: Osteopenia, heel pain ORDERS: foot Xray, ibuprofen, Tylenol ED INTERVENTIONS: Symptomatic postop shoe given DISCHARGE: At this time pt. is stable for d/c to home. Will provide printed patient care instructions, and any necessary prescriptions. Care plan and follow up instructions have been discussed with the patient prior to discharge. Advised patient to follow-up primary doctor for DEXA scan and further evaluation of osteopenia, if worsening symptoms return to the emergency room Other X-Ray Diagnostic Results Other X-Ray Diagnostic Results : X-Ray ordered: Right foot # of Views/Limited Vs Complete: 3 View Indication: Pain EP Interpretation: Yes PA Xray: Interpretation reviewed, by supervising MD, and agrees with findings. Interpretation: no dislocation, no soft tissue swelling, no fractures Impression: No acute disease Electronically Signed by: Stefani HAHN Scribe Text CLINICAL HISTORY: TRAUMA TECHNIQUE: Lateral and plantar views of the right calcaneus. COMPARISON: No previous study. FINDINGS: Bones/joints: There is osteopenia. No acute fracture of the calcaneus is detected. 0.5 cm anterior heel spur. Base of the right fifth metatarsal is unremarkable. No dislocation. Soft tissues: Unremarkable. No radiopaque foreign body. IMPRESSION: 1. Osteopenia. 2. No acute fracture is detected. Last Vital Signs Date Time Temp Pulse Resp B/P (MAP) Pulse Ox O2 Delivery O2 Flow Rate FiO2 09/13/20 17:53 97.2 78 20 114/79 (91) 98 Room Air Disposition: HOME, SELF-CARE Condition: Stable Scripts Acetaminophen* (TYLENOL EXTRA STRENGTH*) 500 Mg Tablet 500 MG ORAL Q8H PRN for Prn Headache/Temp > 101, #30 TAB 0 Refills Prov: Stefani Dowell 09/13/20 Ibuprofen (Ibu) 800 Mg Tablet 800 MG PO TID, #30 TAB Prov: Stefani Dowell 09/13/20 Referrals: [facility] (PCP) Patient Instructions: Osteoporosis, [id number] Additional Instructions: Take medication as directed, follow-up with your primary care provider for DEXA bone density scan, at this time you have osteopenia, your bone density will be determined the degree of your osteopenia, in order to be decided by your primary care provider to report you on supplements for medication for prevention of the progression of osteopenia. If worsening symptoms return to the emergency room Stefani Dowell Sep 13, 2020 18:35
[2020-09-13] MEDS ORDERED: TYLENOL EXTRA500 MG ORAL (18:36)
[2020-09-13] MEDS ORDERED: IBU800 MG PO (18:36)
[2020-09-13 18:45] VITALS: BP 119/86
== END 2020-09-13 18:45 | disposition home or self-care (01) ==
LOC: EMR 18:02
DX: M79.671 Pain in right foot (principal); M85.871 Other specified disorders of bone density and structure, right ankle and foot; E78.00 Pure hypercholesterolemia, unspecified; I10 Essential (primary) hypertension; J44.9 Chronic obstructive pulmonary disease, unspecified; Z88.8 Allergy status to other drugs, medicaments and biological substances
CPT/HCPCS: 73650; Z7502; 99283